=== PATIENT | male | born 1960 | race Asian ===

== ENCOUNTER 2018-08-26 03:20 | Emergency (ER) | payer OTHER ==
[~2018-08-26] VITALS: Ht 167.6 cm; Wt 68.0 kg
[2018-08-26 04:03] VITALS: BP 151/92; TEMP 97.9
== END 2018-08-26 04:03 | disposition home or self-care (01) ==
LOC: ED 03:20
DX: K08.89 Other specified disorders of teeth and supporting structures (principal); K02.9 Dental caries, unspecified
CPT/HCPCS: 99282

== ENCOUNTER 2021-07-28 20:13 | Emergency (ER) | payer OTHER ==
[~2021-07-28] VITALS: Ht 167.6 cm; Wt 61.7 kg
[2021-07-28 21:37] LABS: POTASSIUM 3.7 mmol/L (3.6-5.2)
[2021-07-28 21:48] LABS: PLATELET COUNT 151 K/uL (142-355)
[2021-07-28 23:30] VITALS: BP 98/66; TEMP 98
== END 2021-07-28 23:30 | disposition short-term general hospital (02) ==
LOC: ED 20:13
PROVIDERS: Emergency Medicine Emergency Medical Services
DX: I21.9 Acute myocardial infarction, unspecified (principal); R00.0 Tachycardia, unspecified
CPT/HCPCS: 36415; 80053; 83880; 84484; 85027; 85379; 85610; 85730; 87635; 93005; 96360; 96361; 96365; 96375; 96376; 99285; J1644; J3490; U0003

== ENCOUNTER 2021-08-06 03:59 | Emergency (ER) | payer OTHER ==
[~2021-08-06] VITALS: Ht 170.2 cm; Wt 61.7 kg
[2021-08-06 04:24] LABS: PLATELET COUNT 188 K/uL (142-355)
[2021-08-06 04:30] LABS: POTASSIUM 3.8 mmol/L (3.6-5.2)
[2021-08-06] MEDS ORDERED: ASPIRIN/ENTERIC81 MG PO (04:31)
[2021-08-06 04:46] LABS: PARTIAL THROMBOPLASTIN TIME 27.1 SECONDS (24.5-33.6)
[2021-08-06 08:05] VITALS: BP 137/82; TEMP 98
== END 2021-08-06 08:05 | disposition short-term general hospital (02) ==
LOC: ED 03:59
PROVIDERS: Emergency Medicine
DX: I21.4 Non-ST elevation (NSTEMI) myocardial infarction (principal); I48.91 Unspecified atrial fibrillation; I48.92 Unspecified atrial flutter; F14.10 Cocaine abuse, uncomplicated; I25.2 Old myocardial infarction; Z11.52 Encounter for screening for COVID-19; F17.210 Nicotine dependence, cigarettes, uncomplicated
CPT/HCPCS: 36415; 80053; 80307; 83880; 84484; 85027; 85379; 85610; 85730; 87635; 93005; 96365; 96366; 96375; 96376; 99285; J1644; J3490; Q9963; U0003

== ENCOUNTER 2022-02-23 13:21 | Emergency (ER) | payer OTHER ==
[~2022-02-23] VITALS: Ht 170.2 cm; Wt 58.1 kg
[~2022-02-23 13:21] MED LIST: ASPIRIN/ENTERIC81 MG PO
[2022-02-23 13:22] VITALS: TEMP 97.8
[2022-02-23 13:56] LABS: PLATELET COUNT 172 K/uL (142-355)
[2022-02-23 14:01] LABS: POTASSIUM 3.8 mmol/L (3.6-5.2)
[2022-02-23 14:15] LABS: PARTIAL THROMBOPLASTIN TIME 29.4 SECONDS (24.5-33.6)
[2022-02-23 19:45] VITALS: BP 138/85
== END 2022-02-23 19:45 | disposition left against medical advice (07) ==
LOC: ED 13:21
PROVIDERS: Emergency Medicine Emergency Medical Services
DX: I21.4 Non-ST elevation (NSTEMI) myocardial infarction (principal); Z91.14 Patient's other noncompliance with medication regimen; Z53.29 Procedure and treatment not carried out because of patient's decision for other reasons; I25.2 Old myocardial infarction; Z20.822 Contact with and (suspected) exposure to COVID-19; F17.210 Nicotine dependence, cigarettes, uncomplicated
CPT/HCPCS: 80053; 80307; 81000; 83735; 84484; 85027; 85379; 85610; 85730; 87502; 87635; 93005; 96360; 96365; 96366; 96375; 99285; J1644; J3490; Q9963; U0003

== ENCOUNTER 2022-02-25 13:43 | Emergency (ER) | payer OTHER ==
[~2022-02-25] VITALS: Ht 170.2 cm; Wt 58.1 kg
[2022-02-25 13:55] VITALS: TEMP 98.5
[2022-02-25 15:04] LABS: PLATELET COUNT 166 K/uL (142-355)
[2022-02-25 15:23] LABS: PARTIAL THROMBOPLASTIN TIME 28.8 SECONDS (24.5-33.6)
[2022-02-25 16:08] VITALS: BP 148/86
== END 2022-02-25 19:34 | disposition short-term general hospital (02) ==
LOC: ED 13:43
PROVIDERS: Emergency Medicine
DX: I22.2 Subsequent non-ST elevation (NSTEMI) myocardial infarction (principal); I21.4 Non-ST elevation (NSTEMI) myocardial infarction; I10 Essential (primary) hypertension; Z11.52 Encounter for screening for COVID-19; F17.210 Nicotine dependence, cigarettes, uncomplicated
CPT/HCPCS: 83880; 84484; 85027; 85610; 85730; 87635; 93005; 99284; U0003

== ENCOUNTER 2022-03-03 14:42 | Emergency (ER) | payer OTHER ==
[~2022-03-03] VITALS: Ht 167.6 cm; Wt 59.0 kg
[2022-03-03 14:48] VITALS: TEMP 97.2
[2022-03-03 17:50] VITALS: BP 124/84
== END 2022-03-03 17:51 | disposition home or self-care (01) ==
LOC: ED 14:42
DX: R13.19 Other dysphagia (principal)
CPT/HCPCS: 87502; 87651; 96372; 99283; J1610

== ENCOUNTER 2022-03-07 08:29 | Emergency (ER) | payer OTHER ==
[~2022-03-07] VITALS: Ht 167.6 cm; Wt 59.0 kg
[2022-03-07 08:51] VITALS: TEMP 97.1
[2022-03-07 10:16] LABS: PLATELET COUNT 142 K/uL (142-355)
[2022-03-07 10:42] LABS: PARTIAL THROMBOPLASTIN TIME 30.1 SECONDS (24.5-33.6)
[2022-03-07 10:48] LABS: POTASSIUM 4.4 mmol/L (3.6-5.2)
[2022-03-07 16:11] VITALS: BP 154/88
== END 2022-03-07 16:13 | disposition short-term general hospital (02) ==
LOC: ED 08:29
PROVIDERS: Family Medicine
DX: I21.4 Non-ST elevation (NSTEMI) myocardial infarction (principal); M62.82 Rhabdomyolysis; K22.2 Esophageal obstruction; I10 Essential (primary) hypertension; F17.210 Nicotine dependence, cigarettes, uncomplicated
CPT/HCPCS: 80053; 82150; 82550; 83690; 83880; 84484; 85027; 85610; 85730; 93005; 96360; 96361; 96365; 96366; 96375; 99284; J2405; J3490

== ENCOUNTER 2022-03-14 11:28 | Emergency (ER) | payer OTHER ==
[~2022-03-14] VITALS: Ht 167.6 cm; Wt 54.4 kg
[2022-03-14 12:06] LABS: PLATELET COUNT 159 K/uL (142-355)
[2022-03-14 12:16] LABS: POTASSIUM 4.6 mmol/L (3.6-5.2)
[2022-03-14 12:25] LABS: PARTIAL THROMBOPLASTIN TIME 27.2 SECONDS (24.5-33.6)
[2022-03-14 13:30] VITALS: TEMP 98.9
[2022-03-14] MEDS ORDERED: LISI10TA11 PO (13:49)
[2022-03-14] MEDS ORDERED: CARV6.25 PO (13:49)
[2022-03-14] MEDS ORDERED: PANTOPRAZOLE 40MG TA PO (13:50)
[2022-03-14] MEDS ORDERED: CLOP75TA2 PO (13:50)
[2022-03-14] MEDS ORDERED: SPIRONOLACT25 MG PO (13:50)
[2022-03-14] MEDS ORDERED: LIPITOR40 MG PO (13:50)
[2022-03-14] MEDS ORDERED: ELIQUIS5 MG PO (13:51)
[2022-03-14 14:00] VITALS: BP 168/99
== END 2022-03-14 14:53 | disposition short-term general hospital (02) ==
LOC: ED 11:28
PROVIDERS: Emergency Medicine
DX: I22.2 Subsequent non-ST elevation (NSTEMI) myocardial infarction (principal); I21.4 Non-ST elevation (NSTEMI) myocardial infarction; M62.82 Rhabdomyolysis; R94.5 Abnormal results of liver function studies; F14.10 Cocaine abuse, uncomplicated; I10 Essential (primary) hypertension; F17.210 Nicotine dependence, cigarettes, uncomplicated
CPT/HCPCS: 36415; 80053; 80307; 80320; 82550; 83735; 83880; 84484; 85027; 85610; 85730; 93005; 96360; 96365; 96366; 96375; 99284; J1644; J7120

== ENCOUNTER 2022-04-05 15:56 | Emergency (ER) | payer OTHER ==
[~2022-04-05] VITALS: Ht 167.6 cm; Wt 54.4 kg
[~2022-04-05 15:56] MED LIST changes: +CARV6.25 PO; +CLOP75TA2 PO; +ELIQUIS5 MG PO; +LIPITOR40 MG PO; +LISI10TA11 PO; +PANTOPRAZOLE 40MG TA PO; +SPIRONOLACT25 MG PO
[2022-04-05 16:00] VITALS: TEMP 98.6
[2022-04-05 17:05] VITALS: BP 132/78
== END 2022-04-05 17:50 | disposition short-term general hospital (02) ==
LOC: ED 15:56
DX: K40.31 Unilateral inguinal hernia, with obstruction, without gangrene, recurrent (principal)
CPT/HCPCS: 99282